=== PATIENT | female | born 1975 | race Caucasian/White ===

== ENCOUNTER 2016-08-19 17:29 | Emergency (ER) | payer OTHER ==
[2016-08-19 17:47] VITALS: BP 129/96
--- NOTE | 2016-08-19 18:45 | UC ---
Skin Complaint HPI - HPI Summary HPI Summary: The patient comes in today for: 1. "Bug bites": Onset: 3 weeks ago. Palliative/provocative: nothing makes it better or worse. Quality: Itching. Region: Upper arms and a few on her legs. Severity: 10/12 Time: Constant. Associated symptoms: Fevers: None. Events: She thinks that it is related to mosquito bites at home. * - History of Current Complaint Chief Complaint: UCSkin Time Seen by Provider: 08/19/16 18:28 Stated Complaint: BUG BITES Hx Obtained From: Patient Hx Last Menstrual Period: 08/10/16 - Allergy/Home Medications Allergies/Adverse Reactions: Allergies Allergy/AdvReac Type Severity Reaction Status Date / Time Amoxicillin Allergy Hives Verified 08/15/15 15:13 Sulfa Antibiotics Allergy Hives Verified 08/15/15 15:13 chives Allergy Hives Uncoded 08/15/15 15:14 Home Medications: Home Medications Ibuprofen [Advil] 400 mg PO 08/19/16 [History] LoraTADine TAB(NF) [Claritin 10 MG TAB(NF)] 10 mg PO DAILY 08/19/16 [History Confirmed 08/19/16] Review of Systems Constitutional: Negative Skin: Rash Eyes: Negative ENT: Negative Respiratory: Negative Cardiovascular: Negative Gastrointestinal: Negative Genitourinary: Negative All Other Systems Reviewed And Are Negative: Yes PMH/Surg Hx/FS Hx/Imm Hx Previously Healthy: No - allergies - Surgical History Surgical History: Yes Surgery Procedure, Year, and Place: 3 c-sections - Family History Known Family History: Negative: Cardiac Disease, Hypertension - Social History Occupation: Employed Full-time Alcohol Use: Occasionally Substance Use Type: None Smoking Status (MU): Never Smoked Tobacco Physical Exam Triage Information Reviewed: Yes Appearance: Well-Appearing, No Pain Distress, Well-Nourished Vital Signs: Initial Vital Signs Temp 98.5 F 08/19/16 17:43 Pulse 101 08/19/16 17:43 Resp 18 08/19/16 17:43 BP 129/96 08/19/16 17:43 Pulse Ox 97 08/19/16 17:43 Vital Signs Reviewed: Yes Eyes: Positive: Conjunctiva Clear. Negative: Discharge ENT: Positive: Hearing grossly normal. Negative: Pharyngeal erythema, Nasal congestion, Nasal drainage, TM bulging, TM dull, TM red, Tonsillar swelling, Tonsillar exudate Dental: Negative: Gross Decay/Caries @, Dental Fracture @ Neck: Positive: Supple, Nontender, No Lymphadenopathy. Negative: Nuchal Rigidity Respiratory: Positive: Lungs clear, No respiratory distress, No accessory muscle use. Negative: Rhonchi, Wheezing Cardiovascular: Positive: RRR, No Murmur Abdomen Description: Positive: Nontender, No Organomegaly, Soft. Negative: Distended, Guarding Musculoskeletal: Positive: Strength Intact, ROM Intact Neurological: Positive: Alert, Muscle Tone Normal Psychological: Positive: Age Appropriate Behavior, Consolable Skin: Positive: rashes - She has multiple (about 10) erythematous papular lesions of the right arm--some with excoriated tops, but no signs of infection.. Negative: breakdown Course/Dx - Course Course Of Treatment: patient told that the lesions on her arm could be from different things, (mosquito bites, bed bugs, ants, etc) and recommended further observance. In the mean time, she is recommended to use triamcinolone to relieve the itching. - Diagnoses Provider Diagnoses: papular urticaria Discharge - Discharge Plan Condition: Stable Disposition: HOME Patient Education Materials: Urticaria (ED) Referrals: No Primary Care Phys,NOPCP [Primary Care Provider] - [facility] [Outside] - 1 Week (Please contact the physician referral phone line to get a primary care provider. Please be seen in about 1- 2 weeks for re-evaluation.)
== END 2016-08-19 20:00 | disposition home or self-care (01) ==
LOC: UCEAST 17:29
DX: L28.2 Other prurigo (principal)
CPT/HCPCS: 99212; G0463

== ENCOUNTER 2016-08-24 18:23 | Emergency (ER) | payer OTHER ==
[2016-08-24 19:34] VITALS: BP 140/81
[2016-08-24] MEDS ORDERED: Erythromycin OPTH OINT* APPLIC OINT RIGHT EYE ONE (20:04)
[2016-08-24] MEDS ORDERED: Cephalexin CAP* 500 MG PO ONE ×2 (20:05→20:06)
--- NOTE | 2016-08-24 20:14 | UC ---
Eye Complaint HPI - HPI Summary HPI Summary: 41 YO FEMALE WITH RIGHT LOWER LID PAIN AND SWELLING X 1 DAY NO D/C OR PHOTOPHOBIA - History of Current Complaint Chief Complaint: UCEye Stated Complaint: RIGHT EYE COMPLAINT Time Seen by Provider: 08/24/16 19:55 Hx Obtained From: Patient Hx Last Menstrual Period: 08/19/16 Onset/Duration: Gradual Onset, Lasting Hours Timing: Constant Severity Initially: Mild Severity Currently: Moderate Pain Intensity: 4 Pain Scale Used: 0-10 Numeric Location of Injury: Eye Lid (lower) Character: Dull Aggravating Factor(s): Other - TOUCH Associated Signs And Symptoms: Positive: Swelling. Negative: Photophobia, Drainage (Clear), Drainage (Purulent), Vision Impairment Bilateral, Vision Impairment Right, Vision Impairment Left, Fever - Risk Factors Penetrating Injury Risk Factor: Negative Globe Rupture Risk Factors: Negative Acute Glaucoma Risk Factors: Negative Optic Artery Occlusion Risk Factors: Negative - Allergies/Home Medications Allergies/Adverse Reactions: Allergies Allergy/AdvReac Type Severity Reaction Status Date / Time Amoxicillin Allergy Hives Verified 08/24/16 19:31 Sulfa Antibiotics Allergy Hives Verified 08/24/16 19:31 chives Allergy Hives Uncoded 08/24/16 19:31 PMH/Surg Hx/FS Hx/Imm Hx Previously Healthy: Yes Psychological History: Depression - Surgical History Surgical History: Yes Surgery Procedure, Year, and Place: 3 c-sections - Family History Known Family History: Positive: None, Hypertension, Other - DEPRESSION Negative: Cardiac Disease - Social History Alcohol Use: None Substance Use Type: None Smoking Status (MU): Never Smoked Tobacco Review of Systems Constitutional: Negative Skin: Negative Eyes: Negative ENT: Negative Respiratory: Negative Cardiovascular: Negative Gastrointestinal: Negative Genitourinary: Negative Motor: Negative Neurovascular: Negative Musculoskeletal: Negative Neurological: Negative Psychological: Negative All Other Systems Reviewed And Are Negative: Yes Physical Exam Triage Information Reviewed: Yes Appearance: Well-Appearing, No Pain Distress, Well-Nourished Vital Signs: Initial Vital Signs Temp 98.1 F 08/24/16 19:19 Pulse 73 08/24/16 19:19 Resp 16 08/24/16 19:19 BP 140/81 08/24/16 19:19 Pulse Ox 100 08/24/16 19:19 Vital Signs Reviewed: Yes Eyes: Positive: Conjunctiva Clear, Other: - RIGHT LOWER LID EDEMA/REDNESS, STYE AND A CHALAZION Dental: Negative: Dental Fracture @, Abscess @ Neck: Positive: Supple, Nontender, No Lymphadenopathy Respiratory: Positive: Lungs clear, Normal breath sounds, No respiratory distress, No accessory muscle use Cardiovascular: Positive: RRR, No Murmur Musculoskeletal: Positive: Strength Intact, No Edema Neurological: Positive: Alert Psychological Exam: Normal Skin Exam: Normal Eye Complaint Course/Dx - Differential Dx/Diagnosis Provider Diagnoses: RIGHT LOWER LID CHALAZION AND STYE Discharge - Discharge Plan Condition: Stable Disposition: HOME Prescriptions: Cephalexin CAP* [Keflex CAP*] 500 mg PO QID #[id number] cap Patient Education Materials: Stye (ED), Chalazion (ED) Referrals: [facility] [place] [facility] [Outside] (YOU NEED TO FIND A TRUCKER HAND...YOU BP WAS A LITTLE HIGHER THAN WE LIKE TO SEE IT AND NEEDS FOLLOWING ) Dany Fernando MD [Medical Doctor] - If Needed Cassandra MILLS,Mara [Medical Doctor] - If Needed Additional Instructions: WARM COMPRESSES 4X DAY APPLY ANTIBIOTIC EYE OINTMENT 4X DAY DIRECTED SEE AN EYE DOCTOR IN FOLLOW UP IF NOT IMPROVING RECHECK FOR WORSENING SYMPTOMS
== END 2016-08-24 20:30 | disposition home or self-care (01) ==
LOC: UCCORT 18:23
DX: H00.12 Chalazion right lower eyelid (principal); H00.012 Hordeolum externum right lower eyelid; F32.9 Major depressive disorder, single episode, unspecified; Z88.1 Allergy status to other antibiotic agents; Z88.2 Allergy status to sulfonamides
CPT/HCPCS: 99213; A9270-GY; G0463